=== PATIENT | female | born 1995 | race Two or more races ===

== ENCOUNTER 2018-06-09 00:15 | Emergency (ER) | payer OTHER ==
[~2018-06-09] VITALS: Ht 167.6 cm; Wt 106.6 kg
[2018-06-09 00:30] VITALS: BP 132/77
--- NOTE | 2018-06-09 01:07 | PHYS DOC ---
Adult General Chief Complaint Chief Complaint: TOE PROBLEM HPI HPI Patient is a 23 year old female who presents toe pain. Patient states her fourth toe on her right foot has been swollen for six days. She reports getting her nails done the day before the swelling started. She describes the pain as a throbbing sensation. Per patient the toe has drained some pus. Walking makes her pain worse. Nothing has improved her pain. She denies fever, chills, or toe numbness and tingling. Review of Systems Review of Systems Constitutional: Denies fever or chills Eyes: Denies redness or eye pain HENT: Denies nasal congestion or sore throat Respiratory: Denies cough or shortness of breath Cardiovascular: Denies chest pain or palpitations GI: Denies abdominal pain, nausea, vomiting : Denies dysuria or hematuria Musculoskeletal: Reports right fourth toe pain. Denies ankle pain Integument: Reports erythema to fourth toe on right foot. No rash present. Neurologic: Denies headache or focal weakness Complete systems were reviewed and found to be within normal limits, except as documented in this note. Current Medications Current Medications Current Medications Medications (Trade) Dose Ordered Sig/Dallin Start Time Stop Time Status Last Admin Dose Admin Clindamycin HCl (Cleocin) 300 mg 1X ONCE 06/09/18 02:00 06/09/18 02:01 DC Allergies Allergies Allergies Coded Allergies Type Severity Reaction Last Updated Verified No Known Drug Allergies 06/09/18 No Physical Exam Physical Exam Constitutional: No acute distress, non-toxic appearance. HENT: Normocephalic, atraumatic Eyes: EOMI, no discharge. Neck: Normal range of motion, no tenderness. Cardiovascular:Heart rate regular rhythm, no murmur Lungs & Thorax: Bilateral breath sounds clear to auscultation Abdomen: Bowel sounds normal, soft Skin: Warm, dry Back: No tenderness, no CVA tenderness. Extremities: Right fourth toe erythema, pain with movement of right fourth toe, normal sensation of affected toe Neurologic: Alert and oriented X 3, no focal deficits noted. Psychologic: Affect normal, mood normal. [] Current Patient Data Vital Signs Vital Signs Date Time Temp Pulse Resp B/P (MAP) Pulse Ox O2 Delivery O2 Flow Rate FiO2 06/09/18 00:30 97.9 88 18 132/77 (95) 99 Room Air 97.9 EKG EKG [] Radiology/Procedures Radiology/Procedures [] Course & Med Decision Making Course & Med Decision Making 23 year old female presented to the ED for toe pain. Patient has been having toe pain ever since she got her nails done one week ago. She reports drainage from the toe. On exam the was erythema to the right fourth toe. Symptomatic treatment provided with interval improvement. Provided patient with antibiotic. Patient stable for discharge with outpatient follow-up with PCP. Discussed findings and plan with patient and family, who acknowledge understanding and agreement. Dragon Disclaimer Dragon Disclaimer This electronic medical record was generated, in whole or in part, using a voice recognition dictation system. Departure Departure Impression: Primary Impression: Paronychia of fourth toe of right foot Disposition: HOME, SELF-CARE Condition: STABLE Patient Instructions: Paronychia, [id number] Scripts Clindamycin Hcl (CLINDAMYCIN HCL) 300 Mg Capsule 1 CAP PO TID for Infection for 7 Days, #21 CAP Prov: KINSEY FARRELL DO 06/09/18 KINSEY FARRELL DO Jun 09, 2018 01:07
[2018-06-09] MEDS ORDERED: CLINDAMYCIN HCL 150 MG CAPSULE. PO ONE (02:00)
[2018-06-09] MEDS ORDERED: CLIN300C8 PO (02:05)
== END 2018-06-09 02:06 | disposition home or self-care (01) ==
LOC: ER 00:15
DX: L03.031 Cellulitis of right toe (principal)
CPT/HCPCS: 99283

== ENCOUNTER 2018-06-18 14:25 | Emergency (ER) | payer OTHER ==
[~2018-06-18] VITALS: Ht 157.5 cm; Wt 106.6 kg
[~2018-06-18 14:25] MED LIST: CLIN300C8 PO
[2018-06-18 14:36] VITALS: BP 136/63
[2018-06-18] MEDS ORDERED: predniSONE 10 MG TABLET PO ONE (14:45)
[2018-06-18] MEDS ORDERED: IPRATRPIUM/ALBUTEROL 0.5/2.5MG 3 ML NEBU. NEB ONE (14:45)
[2018-06-18] MEDS ORDERED: ALBU1.25 NEB (15:12)
[2018-06-18] MEDS ORDERED: ALBU2.5V8 IH (15:12)
[2018-06-18] MEDS ORDERED: PRED50TA PO (15:12)
--- NOTE | 2018-06-18 15:12 | PHYS DOC ---
Past Medical History Past Medical History: Anemia, Asthma Past Surgical History: Other Additional Past Surgical Histo: BILATERAL EAR TUBES Alcohol Use: Occasionally Drug Use: Marijuana Adult General Chief Complaint Chief Complaint: ASTHMA HPI HPI Patient is a 23 year old female with history of asthma who presents to the ED today complaining of wheezing and a cough that began 2 weeks ago. Patient states she does not have her inhaler or any nebulizer treatments. Denies any fever. Review of Systems Review of Systems Constitutional: Denies fever or chills [] Eyes: Denies change in visual acuity, redness, or eye pain [] HENT: Denies nasal congestion or sore throat [] Respiratory: Reports cough and wheezing, denies shortness of breath [] Cardiovascular: No additional information not addressed in HPI [] GI: Denies abdominal pain, nausea, vomiting, bloody stools or diarrhea [] : Denies dysuria or hematuria [] Musculoskeletal: Denies back pain or joint pain [] Integument: Denies rash or skin lesions [] Neurologic: Denies headache, focal weakness or sensory changes [] All other systems were reviewed and found to be within normal limits, except as documented in this note. Current Medications Current Medications Current Medications Medications (Trade) Dose Ordered Sig/Dallin Start Time Stop Time Status Last Admin Dose Admin Albuterol/ Ipratropium (Duoneb) 3 ml 1X ONCE 06/18/18 14:45 06/18/18 14:46 DC 06/18/18 15:04 3 ML Prednisone (Prednisone) 50 mg 1X ONCE 06/18/18 14:45 06/18/18 14:46 DC Allergies Allergies Allergies Coded Allergies Type Severity Reaction Last Updated Verified No Known Drug Allergies 06/09/18 No Physical Exam Physical Exam Constitutional: Well developed, well nourished, no acute distress, non-toxic appearance. [] HENT: Normocephalic, atraumatic, bilateral external ears normal, oropharynx moist, no oral exudates, nose normal. [] Eyes: PERRLA, EOMI, conjunctiva normal, no discharge. [] Neck: Normal range of motion, no tenderness, supple, no stridor. [] Cardiovascular:Heart rate regular rhythm, no murmur [] Lungs & Thorax: Slight wheezing throughout the lung bases, Abdomen: Bowel sounds normal, soft, no tenderness, no masses, no pulsatile masses. [] Skin: Warm, dry, no erythema, no rash. [] Back: No tenderness, no CVA tenderness. [] Extremities: No tenderness, no cyanosis, no clubbing, ROM intact, no edema. [] Neurologic: Alert and oriented X 3, normal motor function, normal sensory function, no focal deficits noted. [] Psychologic: Affect normal, judgement normal, mood normal. [] Current Patient Data Vital Signs Vital Signs Date Time Temp Pulse Resp B/P (MAP) Pulse Ox O2 Delivery O2 Flow Rate FiO2 06/18/18 14:36 97.8 95 16 136/63 (87) 95 Room Air 97.8 EKG EKG [] Radiology/Procedures Radiology/Procedures [] Course & Med Decision Making Course & Med Decision Making Pertinent Labs and Imaging studies reviewed. (See chart for details) This is a 23-year-old female patient with history of asthma presenting to the ED today with asthma exacerbation. Patient was given a DuoNeb treatment and started on. Lungs are clear, breathing is back to baseline. Discharged with albuterol inhaler as well as prednisone. Follow-up with her PCP in 1-2 weeks. Dragon Disclaimer Dragon Disclaimer This electronic medical record was generated, in whole or in part, using a voice recognition dictation system. Departure Departure Impression: Primary Impression: Asthma exacerbation Disposition: 01 HOME, SELF-CARE Condition: STABLE Referrals: NO PCP (PCP) Follow-up in 1-2 weeks Patient Instructions: Asthma, Adult Additional Instructions: You were evaluated in the emergency room for asthma exacerbation. Please ensure you are using your breathing treatments as ordered. Complete your prednisone. Follow-up with your doctor in 1-2 weeks. Scripts Albuterol Sulfate (PROVENTIL HFA INHALER) 6.7 Gm Hfa.aer.ad 1 PUFF IH PRN Q4HRS PRN for FOR ASTHMA, #1 INHALER 1 Refill Prov: MUTUNGA,ELADIA MEAT DEPARTMENT MANAGER 06/18/18 Albuterol Sulfate (ALBUTEROL SULFATE NEB SOLN) 1.25 Mg/3 Ml Vial.neb 1 VIAL NEB Q6HRS, #150 ML 1 Refill Prov: MUTUNGA,ELADIA MEAT DEPARTMENT MANAGER 06/18/18 Prednisone (PREDNISONE) 50 Mg Tablet 1 TAB PO DAILY, #5 TAB Prov: MUTUNGA,ELADIA MEAT DEPARTMENT MANAGER 06/18/18 Problem Qualifiers Primary Impression: Asthma exacerbation Asthma severity: mild Asthma persistence: intermittent Qualified Codes: J45.21 - Mild intermittent asthma with (acute) exacerbation ELADIA MORGAN MEAT DEPARTMENT MANAGER June 18, 2018 15:12
== END 2018-06-18 15:23 | disposition home or self-care (01) ==
LOC: ER 14:25
DX: J45.21 Mild intermittent asthma with (acute) exacerbation (principal)
CPT/HCPCS: 94640; 99283; J7512; J7620

== ENCOUNTER 2018-07-24 16:02 | Emergency (ER) | payer OTHER ==
[~2018-07-24] VITALS: Ht 167.6 cm; Wt 106.6 kg
[~2018-07-24 16:02] MED LIST changes: +ALBU1.25 NEB; +ALBU2.5V8 IH; +PRED50TA PO
[2018-07-24 16:09] VITALS: BP 141/72
[2018-07-24] MEDS ORDERED: DEXAMETHASONE 4 MG TABLET PO STA (16:12)
[2018-07-24] MEDS ORDERED: IPRATRPIUM/ALBUTEROL 0.5/2.5MG 3 ML NEBU. NEB ONE ×2 (16:15→18:15)
--- NOTE | 2018-07-24 16:29 | PHYS DOC ---
Past Medical History Past Medical History: Anemia, Asthma Past Surgical History: Other Additional Past Surgical Histo: BILATERAL EAR TUBES Additional Information: non smoker Alcohol Use: Occasionally Drug Use: Marijuana Adult General Chief Complaint Chief Complaint: SORE THROAT HPI HPI Patient is a 23 year old female who presents with wheezing, congestion, cough and sore throat since yesterday. The patient has been using her inhaler at home that is not at cause improvement. The patient states her sore throat pain is 10 out of 10 and throbbing. Denies running fevers at home. Review of Systems Review of Systems Constitutional: Denies fever or chills [] Eyes: Denies change in visual acuity, redness, or eye pain [] HENT: Reports nasal congestion/runny nose and sore throat [] Respiratory: Reports cough or shortness of breath [] Cardiovascular: No additional information not addressed in HPI [] GI: Denies abdominal pain, nausea, vomiting, bloody stools or diarrhea [] : Denies dysuria or hematuria [] Musculoskeletal: Denies back pain or joint pain [] Integument: Denies rash or skin lesions [] Neurologic: Denies headache, focal weakness or sensory changes [] Endocrine: Denies polyuria or polydipsia [] Complete systems were reviewed and found to be within normal limits, except as documented in this note. Current Medications Current Medications Current Medications Medications (Trade) Dose Ordered Sig/Dallin Start Time Stop Time Status Last Admin Dose Admin Albuterol/ Ipratropium (Duoneb) 3 ml 1X ONCE 07/24/18 18:15 07/24/18 18:16 DC 07/24/18 17:54 3 ML Dexamethasone (Decadron) 10 mg 1X STAT 07/24/18 16:12 07/24/18 16:21 DC 07/24/18 16:32 10 MG Allergies Allergies Allergies Coded Allergies Type Severity Reaction Last Updated Verified No Known Drug Allergies 06/09/18 No Physical Exam Physical Exam Constitutional: Well developed, well nourished, no acute distress, non-toxic appearance. [] HENT: Normocephalic, atraumatic, bilateral external ears normal, oropharynx moist and erythematous, no oral exudates, nose normal. [] Eyes: PERRLA, EOMI, conjunctiva normal, no discharge. [] Neck: Normal range of motion, no tenderness, supple, no stridor. [] Cardiovascular:Heart rate regular rhythm, no murmur [] Lungs & Thorax: Bilateral breath sounds show diffuse wheezing in all dacosta. The patient is able to talk in full sentences. Abdomen: Bowel sounds normal, soft, no tenderness, no masses, no pulsatile masses. [] Skin: Warm, dry, no erythema, no rash. [] Back: No tenderness, no CVA tenderness. [] Extremities: No tenderness, no cyanosis, no clubbing, ROM intact, no edema. [] Neurologic: Alert and oriented X 3, normal motor function, normal sensory function, no focal deficits noted. [] Psychologic: Affect normal, judgement normal, mood normal. [] Current Patient Data Vital Signs Vital Signs Date Time Temp Pulse Resp B/P (MAP) Pulse Ox O2 Delivery O2 Flow Rate FiO2 07/24/18 17:55 93 Room Air 07/24/18 16:09 98.8 110 22 141/72 (95) 98.8 EKG EKG [] Radiology/Procedures Radiology/Procedures [] Course & Med Decision Making Course & Med Decision Making Pertinent Labs and Imaging studies reviewed. (See chart for details) Appears to be having an asthma exacerbation and upper respiratory infection that has caused post-nasal drip to irritate the throat. Will give breathing treatment and Dexamethasone and recommend to take Zyrtec daily. Reevaluated patient at 1652 and wheezing had improved after initial DuoNeb. Could still hear scattered mild wheezing. Will order a second DuoNeb treatment. Reevaluated patient after second breathing treatment and breath sounds are clear bilaterally. Will d/c home to follow up with primary care provider. Dragon Disclaimer Dragon Disclaimer This electronic medical record was generated, in whole or in part, using a voice recognition dictation system. Departure Departure Impression: Primary Impression: Asthma exacerbation Additional Impression: Upper respiratory infection Disposition: HOME, SELF-CARE Condition: STABLE Referrals: WYATT VALDIVIA MD (PCP) Patient Instructions: Asthma Prevention-Brief, Asthma, Adult Additional Instructions: Thank you for visiting [facility]. We appreciate you trusting us with your care. If any additional problems come up don't hesitate to return to visit us. Please follow up with your primary care provider so they can plan additional care if needed and know about the problem that you had. If symptoms worsen come back to the Emergency Department. Any concerning symptoms that start such as chest pain, shortness of air, weakness or numbness on one side of the body, running high fevers or any other concerning symptoms return to the ER. Problem Qualifiers Primary Impression: Asthma exacerbation Asthma severity: unspecified severity Asthma persistence: unspecified Qualified Codes: J45.901 - Unspecified asthma with (acute) exacerbation Additional Impression: Upper respiratory infection URI type: unspecified viral URI Qualified Codes: J06.9 - Acute upper respiratory infection, unspecified KINSEY PATINO APRN Jul 24, 2018 16:29
== END 2018-07-24 18:26 | disposition home or self-care (01) ==
LOC: ER 16:02
DX: J45.901 Unspecified asthma with (acute) exacerbation (principal); J06.9 Acute upper respiratory infection, unspecified; Z86.2 Personal history of diseases of the blood and blood-forming organs and certain disorders involving the immune mechanism
CPT/HCPCS: 94640; 99284; J7620; J8540